=== PATIENT | female | born 1950 | race American Indian/Alaskan Native ===

== ENCOUNTER 2021-08-29 11:15 | Emergency (ER) | payer MEDICARE, MEDICAID ==
--- NOTE | 2021-08-29 12:08 | Emergency Department Report ---
HPI - General Chief Complaint: Medical Clearance Time Seen by Provider: 08/29/21 11:56 - HPI HPI: Room 6 The patient is a 70-year-old female present with a chief complaint of pulled off colostomy\bleeding from colostomy site. The patient has a history of dementia and was poorly sent from assisted living facility after she was reportedly pulled off her colostomy bag. Nursing reports of some bleeding from the colostomy site at the assisted living facility but none currently. Patient denies complaints ED Past Medical Hx - Past Medical History Hx Hypertension: Yes - Surgical History Past Surgical History?: No Additional Surgical History: Colostomy - Family History Family history: no significant - Social History Smoking Status: Never Smoker Substance Use Type: None - Medications Home Medications: Home Medications Medication Instructions Recorded Confirmed Last Taken Type Sodium Hypochlorite [Dakin's Full 473 ml TOPICAL BID #2 bottle 08/11/21 Unknown Rx Strength] cephALEXin [Keflex] 500 mg PO Q6HR #30 capsule 08/12/21 Unknown Rx ED Review of Systems ROS: Stated complaint: PULLED COLOSTMY BAG OFF Other details as noted in HPI Constitutional: no symptoms reported Respiratory: no symptoms reported Endocrine: no symptoms reported Physical Exam - Physical Exam Vital Signs: Vital Signs 08/29/21 08/29/21 11:18 11:44 Temperature 99.1 F Pulse Rate 78 Respiratory 18 Rate Blood Pressure 142/93 [Left] O2 Sat by Pulse 98 99 Oximetry Physical Exam: GENERAL: The patient is well-developed well-nourished female lying on stretcher not appearing to be in acute distress. [] HEENT: Normocephalic. Atraumatic. Extraocular motions are intact. Patient has moist mucous membranes. NECK: Supple. Trachea midline CHEST/LUNGS: There is no respiratory distress noted. ABDOMEN: Abdomen is soft, nontender. Patient has normal bowel sounds. Colostomy stoma present. No bleeding appreciated. Stoma appears normal and patent SKIN: There is no rash. There is no edema. There is no diaphoresis. NEURO: The patient is awake and alert. The patient is cooperative. The patient has no focal neurologic deficits. The patient has normal speech MUSCULOSKELETAL: There is no evidence of acute injury. ED Course Vital Signs 08/29/21 08/29/21 11:18 11:44 Temperature 99.1 F Pulse Rate 78 Respiratory 18 Rate Blood Pressure 142/93 [Left] O2 Sat by Pulse 98 99 Oximetry ED Medical Decision Making - Differential Diagnosis Colostomy care Critical care attestation.: If time is entered above; I have spent that time in minutes in the direct care of this critically ill patient, excluding procedure time. ED Disposition Clinical Impression: Colostomy present Disposition: HOME / SELF CARE / HOMELESS Is pt being admited?: No Does the pt Need Aspirin: No Condition: Stable Additional Instructions: Return to the emergency department should you develop worsening symptoms, inability to tolerate food or liquids, high fever or any other concerns Referrals: HA LEONG MD [Staff Physician] - 3-5 Days (Dr. Leong is a optical design engineer. Please follow-up with him for further evaluation) Time of Disposition: 12:08
[2021-08-29 14:33] VITALS: BP 125/83
== END 2021-08-29 15:43 | disposition home or self-care (01) ==
LOC: ED 11:15
DX: Z93.3 Colostomy status (principal); I10 Essential (primary) hypertension; Z79.899 Other long term (current) drug therapy
CPT/HCPCS: 99283